=== PATIENT | male | born 1965 | race Caucasian/White ===

== ENCOUNTER 2022-02-15 11:21 | Inpatient (IN) | payer OTHER ==
[2022-02-15] MEDS ORDERED: Sodium Chloride 0.9% 1,000 ML IV ONE (11:44)
[2022-02-15] MEDS ORDERED: Sodium Chloride 0.9% 2.5 ML Syringe FLUSH PRN (11:44)
[2022-02-15] MEDS ORDERED: Sodium Chloride 0.9% 10 ML Syringe FLUSH PRN (11:44)
[2022-02-15] MEDS ORDERED: Pantoprazole 80 MG in Sodium Chloride 0.9% 10 ML IVPUSH ONE (11:54)
[2022-02-15] MEDS ORDERED: HYDROmorphone 1 MG/ML Syringe IVPUSH ONE ×2 (11:54→16:44)
[2022-02-15] MEDS ORDERED: Ondansetron 4 MG/2 ML SDV IVPUSH ONE (11:54)
[2022-02-15 12:25] LABS: BLOOD UREA NITROGEN,BUN 12 mg/dL (7.0-18.0); CARBON DIOXIDE,CO2 28.8 mmol/L (21.0-32.0); CHLORIDE,CL 101 mmol/L (98-107); GLUCOSE RANDOM 158 mg/dL (74-106); LIPASE 40 U/L (73-393); POTASSIUM,K 4.3 mmol/L (3.5-5.1); SODIUM,NA 141 mmol/L (136-148)
[2022-02-15] MEDS ORDERED: Iopamidol 755 MG/ML 500 ML Multipack Bottle IVPUSH ONE (18:04)
[2022-02-15] MEDS ORDERED: Ondansetron 4 MG/2 ML SDV IVPUSH PRN (18:13)
[2022-02-15] MEDS ORDERED: Albuterol/Ipratropium 3.0-0.5 MG/3 ML Neb Soln NEB PRN (18:15)
[2022-02-15] MEDS ORDERED: Morphine 2 MG/ML SYRINGE IVPUSH PRN (18:16)
[2022-02-15] MEDS: Lactated Ringers 1,000 ML IV SCH (18:42)
[2022-02-15] MEDS ORDERED: Labetalol 100 MG/20 ML MDV IVPUSH PRN (23:30)
[2022-02-15] MEDS ORDERED: 50% Dextrose in Water 50 ML Syringe IVPUSH PRN (23:31)
[2022-02-15] MEDS ORDERED: Glucagon,Human Recombinant 1 MG Vial IM PRN (23:31)
[2022-02-15] MEDS: Insulin Aspart 100 Units/ML 3 ML Pen SUBCUT SCH (23:51)
[2022-02-16] MEDS: Lactated Ringers 1,000 ML IV SCH ×3 (01:56→21:07)
[2022-02-16 06:01] LABS: BLOOD UREA NITROGEN,BUN 10 mg/dL (7.0-18.0); CARBON DIOXIDE,CO2 27.5 mmol/L (21.0-32.0); CHLORIDE,CL 106 mmol/L (98-107); GLUCOSE RANDOM 108 mg/dL (74-106); SODIUM,NA 142 mmol/L (136-148)
[2022-02-16] MEDS: Insulin Aspart 100 Units/ML 3 ML Pen SUBCUT SCH ×3 (06:34→19:50)
[2022-02-16] MEDS: Enoxaparin 40 MG/0.4 ML Syringe SUBCUT SCH (08:41)
[2022-02-16] MEDS: Pantoprazole 40 MG in Sodium Chloride 0.9% 10 ML IVPUSH SCH (08:41)
[2022-02-17] MEDS: Insulin Aspart 100 Units/ML 3 ML Pen SUBCUT SCH ×4 (00:18→19:54)
[2022-02-17] MEDS: Dextrose 5%-0.45% NaCl 1,000 ML IV SCH ×3 (00:50→15:11)
[2022-02-17 07:58] LABS: BLOOD UREA NITROGEN,BUN 11 mg/dL (7.0-18.0); CARBON DIOXIDE,CO2 26.6 mmol/L (21.0-32.0); CHLORIDE,CL 101 mmol/L (98-107); GLUCOSE RANDOM 100 mg/dL (74-106); POTASSIUM,K 3.6 mmol/L (3.5-5.1); SODIUM,NA 138 mmol/L (136-148)
[2022-02-17] MEDS: Pantoprazole 40 MG in Sodium Chloride 0.9% 10 ML IVPUSH SCH (08:14)
[2022-02-17] MEDS: Enoxaparin 40 MG/0.4 ML Syringe SUBCUT SCH (08:15)
[2022-02-17] MEDS ORDERED: Lisinopril 10 MG Tab PO SCH (10:30)
== END 2022-02-17 18:30 | disposition home or self-care (01) | DRG 392 ==
LOC: MW.ED 11:21 → MW.MS 16:16
PROVIDERS: ADMIT Student in an Organized Health Care Education/Training Program; ATTEND Student in an Organized Health Care Education/Training Program
PROC: 0D9670Z Drainage of Stomach with Drainage Device, Via Natural or Artificial Opening (ICD-10-PCS; principal; 2022-02-15)
DX: R10.9 Unspecified abdominal pain (principal); I10 Essential (primary) hypertension; G47.30 Sleep apnea, unspecified; E11.9 Type 2 diabetes mellitus without complications; E66.9 Obesity, unspecified; Z20.822 Contact with and (suspected) exposure to COVID-19; Z88.0 Allergy status to penicillin; Z68.35 Body mass index [BMI] 35.0-35.9, adult; H54.7 Unspecified visual loss
CPT/HCPCS: 36415; 43752; 71045; 71045-26; 74018; 74018-26; 74177; 74177-26; 74250; 74250-26; 80053; 81001; 82947; 83605; 83690; 83735; 84100; 85025; 87040; 96374; 96375; 96376; 99285-25; A9270-GY; C9113; J1170; J1650; J2270; J2405; J3490; J7030; J7042; J7120; Q9967; U0002